=== PATIENT | male | born 1950 | race Caucasian/White ===

== ENCOUNTER 2018-10-24 09:03 | Outpatient (CLI) | payer OTHER ==
[~2018-10-24 09:03] MED LIST: NORVASC5 MG PO
== END 2018-10-24 09:05 | disposition home or self-care (01) ==
LOC: NUCLEAR 09:03
DX: I87.2 Venous insufficiency (chronic) (peripheral) (principal)

== ENCOUNTER 2019-03-13 08:22 | Outpatient (CLI) | payer OTHER | END 2019-03-13 08:33 | disposition home or self-care (01) | LOC: SONOGRAMA 08:22 → RAD 08:22 → SONOGRAMA 08:33 → NUCLEAR 09:00 | DX: M12.862 Other specific arthropathies, not elsewhere classified, left knee (principal) ==

== ENCOUNTER 2019-03-13 09:40 | Outpatient (CLI) | payer OTHER | END 2019-03-13 09:42 | disposition home or self-care (01) | LOC: NUCLEAR 09:40 | DX: G45.9 Transient cerebral ischemic attack, unspecified (principal) ==

== ENCOUNTER 2019-06-19 12:51 | Outpatient (CLI) | payer OTHER | END 2019-06-19 12:53 | disposition home or self-care (01) | LOC: RAD 12:51 | DX: R10.84 Generalized abdominal pain (principal) ==

== ENCOUNTER 2022-12-15 14:34 | Emergency (ER) | payer OTHER ==
[~2022-12-15] VITALS: Ht 172.7 cm; Wt 76.7 kg
[2022-12-15] MEDS ORDERED: HYDROCHLOROTH12.5 MG PO (15:41)
[2022-12-15] MEDS ORDERED: NABUMETONE750 MG PO (15:41)
[2022-12-15] MEDS ORDERED: REFRESH RELIEVA10 ML OP (15:41)
[2022-12-15] MEDS ORDERED: TIZANIDINE HCL4 MG PO (15:42)
[2022-12-15] MEDS ORDERED: FOLIC ACID1 MG PO (15:42)
[2022-12-15] MEDS ORDERED: AVAPRO300 MG PO (15:43)
[2022-12-15] MEDS ORDERED: DILTIAZEM ER180 M1 PO (15:43)
[2022-12-15] MEDS ORDERED: NOXIFOL-D32500 UNIT PO (15:44)
[2022-12-15] MEDS ORDERED: UROXATRAL10 MG PO (15:44)
[2022-12-15] MEDS ORDERED: ENBREL50 MG/1 M1 SQ (15:44)
[2022-12-15] MEDS ORDERED: HORIZANT300 MG PO (15:45)
[2022-12-15] MEDS ORDERED: TREXALL5 MG PO (15:46)
== END 2022-12-15 18:43 | disposition home or self-care (01) ==
LOC: ER 14:34
PROVIDERS: General Practice
DX: N39.0 Urinary tract infection, site not specified (principal); I95.9 Hypotension, unspecified; I10 Essential (primary) hypertension; Z88.2 Allergy status to sulfonamides
CPT/HCPCS: 36415; 74240; 96365; 96366; 99283; J7030

== ENCOUNTER 2023-11-02 10:58 | Outpatient (CLI) | payer OTHER ==
[~2023-11-02 10:58] MED LIST changes: +AVAPRO300 MG PO; +DILTIAZEM ER180 M1 PO; +ENBREL50 MG/1 M1 SQ; +FOLIC ACID1 MG PO; +HORIZANT300 MG PO; +HYDROCHLOROTH12.5 MG PO; +NABUMETONE750 MG PO; +NOXIFOL-D32500 UNIT PO; +REFRESH RELIEVA10 ML OP; +TIZANIDINE HCL4 MG PO; +TREXALL5 MG PO; +UROXATRAL10 MG PO
== END 2023-11-02 11:07 | disposition home or self-care (01) ==
LOC: SONOGRAMA 10:58
PROVIDERS: ATTEND General Practice
DX: E03.9 Hypothyroidism, unspecified (principal); E04.1 Nontoxic single thyroid nodule